=== PATIENT | male | born 1985 | race Caucasian/White ===

== ENCOUNTER 2019-12-29 14:46 | Emergency (ER) | payer SELFPAY ==
[2019-12-29 14:50] VITALS: BP 169/96; PULSE 117; RESP 16; TEMP 37.2; O2SAT 100
--- NOTE | 2019-12-29 15:01 | ED.SKABFB ---
HPI - Skin/Abscess/Foreign Bdy General Chief complaint: Skin/Abscess/Foreign Body Stated complaint: infection in R leg Time Seen by Provider: 12/29/19 15:01 Source: patient Mode of arrival: ambulatory Limitations: no limitations History of Present Illness HPI narrative: 34-year-old man comes in today complaining of pain swelling and redness of his right leg starting at the knee going down. States that he noticed about 5 days ago. 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 He states that his last tetanus shot was 5 years ago. He denies fever, nausea, vomiting, weakness or decreased range of motion in his knee. No history of diabetes or prior skin infections. complaint: rash Onset (ago): day(s) (5) Location: RLE Quality: burning and sharp Pain Consistency: constant Relieving factors: rest Exacerbating factors: palpation and movement Associated symptoms: denies other symptoms Treatments prior to arrival: none Related Data Allergies Allergy/AdvReac Type Severity Reaction Status Date / Time No Known Allergies Allergy Verified 12/29/19 15:05 Review of Systems Constitutional: Constitutional: Denies chills and Denies fever(s) Eyes: Eyes: Denies change in vision and Denies photophobia ENT: Denies dysphagia, Denies nasal congestion and Denies sore throat Cardiovascular: Cardiovascular: Denies chest pain and Denies radiating jaw, neck or arm pain Respiratory: Respiratory: Denies cough, Denies dyspnea and Denies wheezing Gastrointestinal: Gastrointestinal: Denies abdominal pain, Denies nausea and Denies vomiting Genitourinary: Genitourinary: Denies hematuria, Denies dysuria and Denies urinary frequency Musculoskeletal: Musculoskeletal: Denies back pain, Denies arthralgias and Denies joint swelling Integumentary/Breasts: Skin/Breast: Denies pruritus, Denies erythema and Denies rash Neurologic: Denies vertigo, Denies dizziness and Denies syncope Hematologic/Lymphatic: Hematologic/Lymphatic: Denies easy bleeding and Denies easy bruising Allergic/Immunologic: Allergic/Immunologic: Denies lip swelling and Denies wheezing PMFSH Social History Social History Smoking status: Current every day smoker Alcohol intake: never Substance use: never Living arrangements: with family Exam Const: General: alert Orientation/consciousness: patient oriented x3 Other: mild acute distress HENMT: Head: normal to inspection Mouth: Yes moist mucous membranes Throat: posterior oropharynx normal Eyes: Conjunctivae: conjunctivae normal Pupils: Equal, round and reactive pupils present EOM: EOMs intact bilaterally Resp: Effort & Inspection: normal respiratory effort and not labored Auscultation: clear to auscultation bilaterally, no rales, no rhonchi and no wheezes Cardio: Rate: regular rate Rhythm: regular rhythm Heart sounds: no murmurs Skin: General skin exam: no jaundice and no pallor Other: Erythema with induration and moderate swelling over the right anterior patella to the mid mccain. No lymphangitis is noted. Area is warm and mildly tender. There are some healing wounds including what appears to be a puncture wound on the right knee below the patella. No foreign bodies palpable. Neuro: General: patient oriented x3, moves all extremities, no focal motor deficits and CN's II-XI intact bilaterally Speech: normal speech Gait exam (Neuro): Normal gait present Extrem: General: normal to inspection and no clubbing, cyanosis or edema Psych: Appearance: grossly normal and well kempt Mental Status: mental status grossly normal Affect: normal affect MDM - Skin/Abscess/Foreign Bdy MDM Narrative Medical decision making narrative: Discussed possibly a foreign body given the abrasions and wounds on his right anterior knee. Patient states he does not recall any injury that might have caused it and declined an x-ray.
[2019-12-29] MEDS: CLINDAMYCIN HCL 150 MG CAP 300 MG PO (15:25)
== END 2019-12-29 15:39 | disposition home or self-care (01) ==
PROVIDERS: Emergency Provider Emergency Medicine
DX: L03.115 Cellulitis of right lower limb (principal)
CPT/HCPCS: 99283; A9270

== ENCOUNTER 2025-03-14 21:54 | Observation (INO) | payer MEDICAID, SELFPAY ==
[2025-03-14] VITALS (7 sets, daily range): BP systolic 130–165; BP diastolic 87–112; PULSE 75–97; RESP 9–17; TEMP 35.1; O2SAT 96–100
--- NOTE | ~2025-03-14 | XR_ITS ---
Examination: XR chest 1V portable Clinical History: Chest trauma Comparison: CT chest 1 day prior Technique: Portable AP Findings: Heart size normal. Right lower lobe airspace disease. No acute bony abnormality. IMPRESSION: 1. Persistent right lower lobe airspace disease. Reviewed, dictated and finalized at location R.
--- NOTE | ~2025-03-14 | CT_ITS ---
EXAMINATION: CT chest abdomen pelvis w con DATE: 03/14/2025 23:41 INDICATION: Chest injury. TECHNIQUE: Computed tomography (CT) of the chest, abdomen, and pelvis was performed with 100 mL Omnipaque 350 intravenous contrast. Automated exposure control and iterative reconstruction technique were employed. The dose-length product was 435.02 mGy-cm. COMPARISON: None FINDINGS: CHEST CT: There is mild scarring at the lung apices. There are nodules and airspace opacities in right middle lobe, consistent with pneumonia. No pleural effusion. The heart size is normal. No pericardial effusion. There is mild thoracic spondylosis. There is mild chronic anterior wedging of multiple thoracic ve rtebral bodies. There is no definitive rib fracture. ABDOMEN/PELVIS CT: There are cysts in the liver to 6 mm. The gallbladder is normal. There is a 9 mm cyst in the spleen. The pancreas, adrenal glands, and kidneys are normal. There are no dilated loops of bowel. The appendix is not visualized. There are no pathologically enlarged lymph nodes. There is no free intraperitoneal fluid. There is mild lumbar spondylosis. IMPRESSION: 1. Right middle lobe pneumonia. Reviewed, dictated and finalized at location E.
--- NOTE | 2025-03-14 22:12 | ED.GENADULT ---
HPI - General Adult General Chief complaint: Overdose Stated complaint: drug overdose Time Seen by Provider: 03/14/25 22:07 History of Present Illness HPI narrative: Alen is previously healthy 39M that was brought in by EMS after an apparent overdose. He was witnessed by law enforcement to be unresponsive. He reportedly coded but after 5 doses of narcan he regained consciousness. Then he reportedly told EMS he took fentanyl. He would not answer questions for me but just stated nobody wants him. Related Data Allergies Allergy/AdvReac Type Severity Reaction Status Date / Time No Known Allergies Allergy Verified 03/14/25 22:42 [facility] Social History Social History Smoking packs per day: 0.5 Smoking cigarettes per day: 10.0 Years smoked: 25 Smoking pack-years: 12.50 Smoking status: Current every day smoker Tobacco type: cigarettes Alcohol intake: former Substance use: current Substance use type: other Other substance usage details: fentanyl Lack of Transportation: No Lack of Food: Never True Current Housing: I Do Not Have Housing Concerned About Future Housing: Decline to Answer Difficulty Paying Gas/Electric Bills: Decline to Answer Difficulty Paying for Meds: Decline to Answer Currently Unemployed: Decline to Answer Education: Trade/Vocational Certificate Difficulty w/ Childcare or Family Care: No Living arrangements: with family Spiritual care concerns: No Exam Const: General: no acute distress and confusion Nutritional Appearance: thin HENMT: Head: normal to inspection Ears: external ears normal Mouth: Yes Normal oral and palatal mucosa present Eyes: Conjunctivae: conjunctivae normal Pupils: Equal, round and reactive pupils present Neck: Neck: normal visual inspection Resp: Effort & Inspection: normal respiratory effort Auscultation: clear to auscultation bilaterally Cardio: Rate: regular rate Rhythm: regular rhythm GI: Other: Normal inspection Back/Spine/Pelvis: Back: no CVA tenderness Skin: General skin exam: normal color Neuro: General: patient oriented x3 and moves all extremities Extrem: General: normal to inspection Psych: Mental Status: mental status grossly normal Course Course Emergency Course: Ordered labs EKG and CT given the compressions EKG showed NSR with a rate of 76, normal axis and no ST elevation Labs largely unremarkable. CT Chest/abd w/ contrast: questionable nondisplaced fracture of the right anterior 5th rib. No pleural effusion or pneumothorax Patchy ground glass/nodular infiltrates, may reflect infection/inflammation or aspiration CT abdomen and Pelvis: No acute intra-abdominal abnormality or solid organ injury. No free air or ascites. No acute osseous abnormality Around 2344 he went apneic and an additional 2m of Narcan were given as well as IV fluids. He continued to say things like nobody wants me here, I don't even matter and he stated he was depressed but would not answer if he wanted to harm himself. Levaquin given for the possible pneumonia and he was admitted to observation for monitoring. Vital Signs Vital signs: Vital Signs Temperature 95.1 F L 03/14/25 21:54 Pulse Rate 89 03/14/25 21:54 Respiratory Rate 12 03/14/25 21:54 Blood Pressure 134/91 H 03/14/25 21:54 Pulse Oximetry 100 03/14/25 21:54 Oxygen Delivery Room Air 03/14/25 21:54 Temperature 97.5 F L 03/15/25 07:35 Pulse Rate 76 03/15/25 08:30 Respiratory Rate 16 03/15/25 08:30 Blood Pressure 150/94 H 03/15/25 07:35 Pulse Oximetry 97 03/15/25 08:30 Oxygen Delivery Room Air 03/15/25 08:30 Medical Decision Making Vital Signs Vital Signs: Vital Signs Temperature 95.1 F L 03/14/25 21:54 Pulse Rate 89 03/14/25 21:54 Respiratory Rate 12 03/14/25 21:54 Blood Pressure 134/91 H 03/14/25 21:54 Pulse Oximetry 100 03/14/25 21:54 Oxygen Delivery Room Air 03/14/25 21:54 Temperature 97.5 F L 03/15/25 07:35 Pulse Rate 76 03/15/25 08:30 Respiratory Rate 16 03/15/25 08:30 Blood Pressure 150/94 H 03/15/25 07:35 Pulse Oximetry 97 03/15/25 08:30 Oxygen Delivery Room Air 03/15/25 08:30 Lab Data 03/15/25 10:14 03/15/25 10:14 Labs: Lab Results 03/14/25 03/14/25 03/14/25 Range/Units 22:26 22:27 22:41 WBC 8.0 (4.8-10.8) K/mm3 RBC 4.36 L (4.70-6.10) M/mm3 Hgb 13.7 L (14.0-18.0) g/dL Hct 41.9 (40.0-54.0) % MCV 96.1 (78.0-102.0) fL MCH 31.4 H (27.0-31.0) pg MCHC 32.7 (32-36) g/dL RDW 11.8 (11.6-14.4) % Plt Count 267 (150-420) K/mm3 MPV 9.9 (8.7-11.0) fl Immature Gran % (Auto) 0.7 H (0.0-0.0) % Neut % (Auto) 77.3 H (50.0-70.0) % Lymph % (Auto) 12.8 L (18.0-42.0) % [place] % (Auto) 5.7 (2.0-11.0) % Eos % (Auto) 2.6 (1.0-6.0) % Baso % (Auto) 0.9 (0.0-1.0) % Lymph # (Auto) 1.03 L (1.10-4.50) K/mm3 [place] # (Auto) 0.46 (0.10-0.90) K/mm3 Eos # (Auto) 0.21 (0.02-0.50) K/mm3 Baso # (Auto) 0.07 (0.00-0.10) K/mm3 Abs Immat Gran (auto) 0.06 H (0.00-0.00) K/mm3 Absolute Neuts (auto) 6.20 (1.70-7.20) K/mm3 Absolute Nucleated RBC 0.00 (0.00-0.00) K/mm3 Nucleated RBC % 0.0 (0-0.0) % Sodium 141 (137-145) mmol/L Potassium 4.4 (3.4-5.0) mmol/L Chloride 102 (98-107) mmol/L Carbon Dioxide 28 (22-30) mmol/L Anion Gap 11 (4-12) mmol/L BUN 12 (9-20) mg/dL Creatinine 1.41 H (0.7-1.3) mg/dL Estim Creat Clear Calc 52 ml/min Estimated GFR 55 L (59 - ) Glucose 195 H (65-110) mg/dL Calculated Osmolality 296 H (285-295) mOsm/kg Calcium 9.5 (8.4-10.2) mg/dL Magnesium 2.3 (1.6-2.3) mg/dL Total Bilirubin 0.9 (0.2-1.3) mg/dL AST 29 (17-59) U/L ALT 21 (6-50) U/L Alkaline Phosphatase 89 (38-126) U/L Troponin I < 0.012 (0.000-0.034) ng/mL NT-Pro-B Natriuret Pep 108 H (19.9-100) pg/mL Total Protein 8.3 H (6.3-8.2) g/dL Albumin 4.6 (3.5-5.1) g/dL Salicylates < 1.0 L (2-20) mg/dL Acetaminophen < 10 L (10-30) ug/mL Ethyl Alcohol < 10 (<10) mg/dL Critical Care Time Critical Care Time Critical Care Time: Yes Total Critical Care Time: 10 Discharge Plan Discharge Clinical Impression: Drug overdose Patient Disposition: Acute Care Hospital [facility] Condition: Stable
--- NOTE | 2025-03-14 22:14 | ECG_ITS ---
Test Date: 2025-03-14 22:31:02 Measurements Intervals [place] Rate: 76 P: 78 VT: 160 QRS: 78 QRSD: 94 T: 84 QT: 437 QTc: 492 Interpretive Statements SINUS RHYTHM NONSPECIFIC ST ELEVATION IN ANT/INF LEADS PROLONGED QT INTERVAL ABNORMAL ECG No previous ECG available for comparison Electronically Signed On 03-15-2025 06:16:47 CDT by Vasquez Garcia D.O.
[2025-03-14 22:46] LABS: Hematocrit 41.9 % (40.0-54.0); Hemoglobin 13.7 g/dL (14.0-18.0); Immature Granulocyte Percent A 0.7 % (0.0-0.0); Lymphocytes Absolute Auto 1.03 K/mm3 (1.10-4.50); Mean Corpuscular HGB Conc 32.7 g/dL (32-36); Mean Corpuscular Hemoglobin 31.4 pg (27.0-31.0); Mean Corpuscular Volume 96.1 fL (78.0-102.0); Nucleated Red Blood Cells Absolute Auto 0.00 K/mm3 (0.00-0.00); Nucleated Red Blood Cells Perc 0.0 % (0-0.0); Platelet Count Result 267 K/mm3 (150-420); Red Blood Count 4.36 M/mm3 (4.70-6.10); White Blood Count 8.0 K/mm3 (4.8-10.8)
[2025-03-14 23:05] LABS: Alanine Aminotransferase 21 U/L (6-50); Albumin Level 4.6 g/dL (3.5-5.1); Alkaline Phosphatase 89 U/L (38-126); Anion Gap 11 mmol/L (4-12); Aspartate Amino Transferase 29 U/L (17-59); Bilirubin,Total 0.9 mg/dL (0.2-1.3); Blood Urea Nitrogen 12 mg/dL (9-20); Calcium 9.5 mg/dL (8.4-10.2); Carbon Dioxide 28 mmol/L (22-30); Chloride 102 mmol/L (98-107); Estimated CRCL calculation 52 ml/min; Estimated Glomerular Filt Rate 55; Glucose 195 mg/dL (65-110); Magnesium 2.3 mg/dL (1.6-2.3); Osmolality Calculated 296 mOsm/kg (285-295); Potassium 4.4 mmol/L (3.4-5.0); Sodium 141 mmol/L (137-145); Total Protein 8.3 g/dL (6.3-8.2)
[2025-03-14 23:06] LABS: Acetaminophen < 10 ug/mL (10-30); Salicylate < 1.0 mg/dL (2-20)
[2025-03-14 23:17] LABS: NT Pro B Type Natriuretic Pept 108 pg/mL (19.9-100); Troponin I < 0.012 ng/mL (0.000-0.034)
[2025-03-14] MEDS: NALOXONE HCL INJ 2 MG/2 ML AMP IV PUSH (23:42)
[2025-03-14] MEDS: SODIUM CHLORIDE 0.9% IV 1,000 ML 999 ML IV CONT (23:42)
[2025-03-15] VITALS (10 sets, daily range): BP systolic 131–156; BP diastolic 94–116; PULSE 73–103; RESP 8–22; TEMP 36.4–36.9; O2SAT 97–100; BMI 17.4
[2025-03-15] MEDS: levoFLOXacin 750 MG/D5W 150 ML 750 MG/150 ML BAG 100 MG IVPB (00:57)
--- NOTE | 2025-03-15 01:02 | PC.NURSE ---
ERP aware of pt's vitals. No new orders.
--- NOTE | 2025-03-15 01:14 | PC.NURSE ---
Spoke with Kadie, ED RN, report given, patient to be admitted to 203, awaiting patient arrival.
[2025-03-15 01:54] LABS: Add Urine Microscopic? NO; Appearance Urine Clear (Clear); Glucose Urine UA Negative (Negative); Leukocyte Esterase Ur Negative LEU/UL (Negative); Nitrate Urine Negative (Negative); Specific Grav Ur 1.010 (1.010-1.020)
[2025-03-15 02:04] LABS: Cannabinoid Screen Urine Negative (Negative)
--- NOTE | 2025-03-15 02:04 | ADMGEN ---
This patient, Alen Balderas, was admitted to 2nd Floor Room 203-1. Patient/family oriented to hospital policies and general routines including ID bracelet, bed and alarms, visiting hours, pain management, procedures, bathroom and other care routines, personal items, smoking policy, room service/diet, and visiting hours. Information on how to activate the Rapid Response Team has been discussed. Patient/Family are encouraged to report perceived risks to care and to ask questions if they do not understand what they are told or what they should do.
--- NOTE | 2025-03-15 09:59 | ECG_ITS ---
Test Date: 2025-03-15 10:32:30 Measurements Intervals [place] Rate: 66 P: 89 MO: 140 QRS: 83 QRSD: 89 T: 90 QT: 426 QTc: 449 Interpretive Statements SINUS RHYTHM VOLTAGE CRITERIA FOR LVH BORDERLINE ST-T WAVE ABNORMALITY- HIGH LATERAL LEADS BASELINE ARTIFACT- I, II, III, AVR, AVL, AVF, V1-V6 BORDERLINE ECG Compared to ECG 03/14/2025 22:31:02 NO SIGNIFICANT CHANGE Electronically Signed On 03-15-2025 11:35:56 CDT by Vasquez Garcia D.O.
[2025-03-15 10:23] LABS: Hematocrit 40.5 % (40.0-54.0); Hemoglobin 13.6 g/dL (14.0-18.0); Mean Corpuscular HGB Conc 33.6 g/dL (32-36); Mean Corpuscular Hemoglobin 31.8 pg (27.0-31.0); Mean Corpuscular Volume 94.6 fL (78.0-102.0); Platelet Count Result 306 K/mm3 (150-420); Red Blood Count 4.28 M/mm3 (4.70-6.10); White Blood Count 10.6 K/mm3 (4.8-10.8)
[2025-03-15 10:40] LABS: Alanine Aminotransferase 20 U/L (6-50); Albumin Level 4.4 g/dL (3.5-5.1); Alkaline Phosphatase 91 U/L (38-126); Anion Gap 8 mmol/L (4-12); Aspartate Amino Transferase 28 U/L (17-59); Bilirubin,Total 1.0 mg/dL (0.2-1.3); Blood Urea Nitrogen 12 mg/dL (9-20); Calcium 9.3 mg/dL (8.4-10.2); Carbon Dioxide 27 mmol/L (22-30); Chloride 102 mmol/L (98-107); Estimated CRCL calculation 59 ml/min; Estimated Glomerular Filt Rate > 60; Glucose 90 mg/dL (65-110); Magnesium 2.1 mg/dL (1.6-2.3); Osmolality Calculated 283 mOsm/kg (285-295); Potassium 4.4 mmol/L (3.4-5.0); Sodium 137 mmol/L (137-145); Total Protein 7.7 g/dL (6.3-8.2)
--- NOTE | 2025-03-15 11:00 | P.SS_ITS ---
Same Day Admit/Disch: HPI History of Present Illness Chief complaint: Unresponsive/Overdose Narrative: Alen Balderas is a 39 year old male Who was brought into the emergency department after found unresponsive by law enforcement which time EMS was called. per medical chart around to the emergency department patient was administered Narcan x 5 after his found to respiratory failure and reported coded at which time they performed CPR but patient became responsive after administration of Narcan. initially in the emergency department patient was alert and reporting no once me to the ER physician. patient with no past medical history could be found medical chart. While patient was still emergency department around 08/20/2044 it appears he had an episode of apneic and was given an additional 2 mg of Narcan IV fluid boluses. patient at this time became responsive and was answering questions. patient was admitted to the medical unit for observation overnight. In the ED: labs were fairly unremarkable except for an GIGI. Drug screen was positive opiates, amphetamines. Reports overdose on fentanyl. Received a total of 7 doses of narcan and IV fluids. CT chest/ABD showed RT middle lobe PNA at which time patient was given IV Levaquin. [facility] Social History Social History Smoking packs per day: 0.5 Smoking cigarettes per day: 10.0 Years smoked: 25 Smoking pack-years: 12.50 Smoking status: Current every day smoker Tobacco type: cigarettes Alcohol intake: former Substance use: current Substance use type: other Other substance usage details: fentanyl Lack of Transportation: No Lack of Food: Never True Current Housing: I Do Not Have Housing Concerned About Future Housing: Decline to Answer Difficulty Paying Gas/Electric Bills: Decline to Answer Difficulty Paying for Meds: Decline to Answer Currently Unemployed: Decline to Answer Education: Trade/Vocational Certificate Difficulty w/ Childcare or Family Care: No Living arrangements: with family Spiritual care concerns: No Same Day Admit/Disch: Med Pre-admit Medications Home Medications ?Medication ?Instructions ?Recorded ?Confirmed ?Type levofloxacin 750 mg tablet 750 mg PO DAILY #4 tabs Rx Review of Systems Review of Systems All systems reviewed & are unremarkable except as noted in HPI and below Exam Const: General: comfortable and no acute distress HENMT: Mouth: Yes moist mucous membranes Eyes: General: appearance normal, both eyes and all related structures Neck: Neck: supple and no JVD Resp: Effort & Inspection: normal respiratory effort Auscultation: clear to auscultation bilaterally Cardio: Rate: regular rate Rhythm: regular rhythm GI: GI Palp: Yes Soft to palpation Auscultation: normal bowel sounds Skin: General skin exam: normal color Wounds: no wounds Neuro: General: gait normal Speech: normal speech Motor exam (neuro): 5/5 motor strength present throughout Sensory Exam: normal sensation Extrem: General: normal to inspection Psych: Appearance: disheveled Mental Status: mental status grossly normal Speech and movement: Normal speech and movement present and Clear speech present Affect: Sad affect present and Other affect and mood findings present (tearful) Attitude: cooperative Thought content: Yes Depressive thoughts present Insight: Limited insight present (Psych) Judgement: Poor judgement present (Psych) DS: Data Data Completed and Pending Labs on day of discharge: Labs from last 24 hours 03/15/25 03/15/25 03/14/25 10:14 01:35 22:41 WBC 10.6 8.0 RBC 4.28 L 4.36 L Hgb 13.6 L 13.7 L Hct 40.5 41.9 MCV 94.6 96.1 MCH 31.8 H 31.4 H MCHC 33.6 32.7 RDW 12.0 11.8 Plt Count 306 267 MPV 9.9 9.9 Immature Gran % (Auto) 0.7 H Neut % (Auto) 77.3 H Lymph % (Auto) 12.8 L [place] % (Auto) 5.7 Eos % (Auto) 2.6 Baso % (Auto) 0.9 Lymph # (Auto) 1.03 L [place] # (Auto) 0.46 Eos # (Auto) 0.21 Baso # (Auto) 0.07 Abs Immat Gran (auto) 0.06 H Absolute Neuts (auto) 6.20 Absolute Nucleated RBC 0.00 Nucleated RBC % 0.0 Sodium 137 141 Potassium 4.4 4.4 Chloride 102 102 Carbon Dioxide 27 28 Anion Gap 8 11 BUN 12 12 Creatinine 1.11 1.41 H Estim Creat Clear Calc 59 52 Estimated GFR > 60 55 L Glucose 90 195 H Calculated Osmolality 283 L 296 H Calcium 9.3 9.5 Magnesium 2.1 2.3 Total Bilirubin 1.0 0.9 AST 28 29 ALT 20 21 Alkaline Phosphatase 91 89 Troponin I < 0.012 NT-Pro-B Natriuret Pep 108 H Total Protein 7.7 8.3 H Albumin 4.4 4.6 Urine Color Light yellow Urine Appearance Clear Urine pH 6.5 Ur Specific [place] 1.010 Urine Protein Negative Urine Glucose (UA) Negative Urine Ketones Trace H Ur Blood (Man) Negative Urine Nitrate Negative Urine Bilirubin Negative Urine Urobilinogen 0.2 Leukocyte Esterase Rfl Negative Salicylates Urine Opiates Screen Positive A Urine Methadone Screen Negative Acetaminophen Ur Barbiturates Screen Negative Ur Phencyclidine Scrn Negative Ur Amphetamine Screen Positive A U Benzodiazepines Scrn Negative Urine Cocaine Screen Negative U Cannabinoids Screen Negative Ethyl Alcohol 03/14/25 03/14/25 22:27 22:26 WBC RBC Hgb Hct MCV MCH MCHC RDW Plt Count MPV Immature Gran % (Auto) Neut % (Auto) Lymph % (Auto) [place] % (Auto) Eos % (Auto) Baso % (Auto) Lymph # (Auto) [place] # (Auto) Eos # (Auto) Baso # (Auto) Abs Immat Gran (auto) Absolute Neuts (auto) Absolute Nucleated RBC Nucleated RBC % Sodium Potassium Chloride Carbon Dioxide Anion Gap BUN Creatinine Estim Creat Clear Calc Estimated GFR Glucose Calculated Osmolality Calcium Magnesium Total Bilirubin AST ALT Alkaline Phosphatase Troponin I NT-Pro-B Natriuret Pep Total Protein Albumin Urine Color Urine Appearance Urine pH Ur Specific [place] Urine Protein Urine Glucose (UA) Urine Ketones Ur Blood (Man) Urine Nitrate Urine Bilirubin Urine Urobilinogen Leukocyte Esterase Rfl Salicylates < 1.0 L Urine Opiates Screen Urine Methadone Screen Acetaminophen < 10 L Ur Barbiturates Screen Ur Phencyclidine Scrn Ur Amphetamine Screen U Benzodiazepines Scrn Urine Cocaine Screen U Cannabinoids Screen Ethyl Alcohol < 10 Imaging Radiologist's impression: EXAMINATION: CT chest abdomen pelvis w con DATE: 03/14/2025 23:41 INDICATION: Chest injury. TECHNIQUE: Computed tomography (CT) of the chest, abdomen, and pelvis was performed with 100 mL Omnipaque 350 intravenous contrast. Automated exposure control and iterative reconstruction technique were employed. The dose-length product was 435.02 mGy-cm. COMPARISON: None FINDINGS: CHEST CT: There is mild scarring at the lung apices. There are nodules and airspace opacities in right middle lobe, consistent with pneumonia. No pleural effusion. The heart size is normal. No pericardial effusion. There is mild thoracic spondylosis. There is mild chronic anterior wedging of multiple thoracic vertebral bodies. There is no definitive rib fracture. ABDOMEN/PELVIS CT: There are cysts in the liver to 6 mm. The gallbladder is normal. There is a 9 mm cyst in the spleen. The pancreas, adrenal glands, and kidneys are normal. There are no dilated loops of bowel. The appendix is not visualized. There are no pathologically enlarged lymph nodes. There is no free intraperitoneal fluid. There is mild lumbar spondylosis. IMPRESSION: 1. Right middle lobe pneumonia. DS: Summary Hospital Course Reason for hospitalization: Drug overdose Hospital Course: Alen Balderas is a 39 year old male Who was brought into the emergency department after found unresponsive by law enforcement which time EMS was called. per medical chart around to the emergency department patient was administered Narcan x 5 after his found to respiratory failure and reported coded at which time they performed CPR but patient became responsive after administration of Narcan. initially in the emergency department patient was alert and reporting no once me to the ER physician. patient with no past medical history could be found medical chart. While patient was still emergency department around 08/20/2044 it appears he had an episode of apneic and was given an additional 2 mg of Narcan IV fluid boluses. patient at this time became responsive and was answering questions. patient was admitted to the medical unit for observation overnight. In the ED: labs were fairly unremarkable except for an GIGI. Drug screen was positive opiates, amphetamines. Reports overdose on fentanyl. Received a total of 7 doses of narcan and IV fluids. CT chest/ABD showed RT middle lobe PNA at which time patient was given IV Levaquin. Hospital Course: patient was admitted overnight for observation follow-up assessment patient alert oriented x4 in no acute distress labs unremarkable and vital stable. Spoke with patient regarding depressive thoughts he did report he was not suicidal and had no plans but has been having a lot of social problems. patient stated he does not usually use fentanyl but did report the use of methamphetamines. patient was tearful assessment I did offer patient has some resources outpatient for counseling at this time though he has refused. I encouraged immediate drug cessation. Patient did report mild shortness a breath was informed imaging showed right middle lobe pneumonia which time he was discharged on oral antibiotics. patient has acute kidney injury improved with IV fluids he was tolerating all oral intake with no respiratory distress 98 on room air. patient denied any chest pain, abdominal pain, nausea, vomiting, fever chills. Patient was discharged home Status at Discharge Functional status at discharge: independent ambulation Overall status at discharge: patient is back to baseline Time Spent with Patient Time attestation: Total time spent providing and/or coordinating discharge services: Time spent: Greater than 30 minutes DS: Admitting Diagnosis Discharge Date 03/15/2025 Admitting Diagnosis Drug overdose DS: Discharge Diagnosis Discharge Diagnosis (1) Drug overdose: Code(s): T50.901A - Poisoning by unspecified drugs, medicaments and biological substance s, accidental (unintentional), initial encounter Status: Acute (2) GIGI (acute kidney injury): Code(s): N17.9 - Acute kidney failure, unspecified Status: Acute Discharge Plan Discharge Attending physician on discharge: Adrien Fernandez Consulting providers: Beulah Acosta Discharging Clinician: Beulah Acosta Anticipated Discharge Date/Time: 03/15/25 11:14 Patient Disposition: Home Activity: may shower, unlimited and as tolerated Diet: regular Discharge Instructions: 1). Pneumonia * Oral Levaquin has been prescribed for treatment of ammonia please take as indicated incomplete even if feeling better How can you care for yourself at home? ? Keep track of any new symptoms or changes in your symptoms. ? Rest until you feel better. ? Be safe with medicines. Take your medicines exactly as prescribed. Call your doctor if you think you are having a problem with your medicine. ? Do not drive after taking a prescription pain medicine. ? Ensure to follow-up with primary care physician as indicated and provide updated medication list provided to you at discharge. When should you call for help? Call 911 anytime you think you may need emergency care. For example, call if: ? You passed out (lost consciousness). Call your doctor now or seek immediate medical care if: ? You have new symptoms like fever, difficulty breathing, Chest pain, vomiting, or rash. ? You have new or different pain. ? You are confused and are having trouble thinking clearly. ? Your symptoms are getting worse. Watch closely for changes in your health, and be sure to contact your doctor if: ? You do not get better as expected. Patient Instructions: Antibiotic Form Patient Language: Albanian Stand Alone Forms: General Discharge Information Follow-up/Referrals: PHYSICIAN,[facility]NER [Primary Care Provider, Internal Medicine] - 2 weeks Discharge Medications: New levofloxacin 750 mg tablet 750 mg PO DAILY Qty: 4 0RF Date of admission: 03/15/25 01:01 Primary Care Provider: PHYSICIAN,[facility]NER Admitting Provider: Adrien Fernandez Attending physician on admission: Adrien Fernandez Condition: Stable Quality If No VTE Prophylaxis Answer both mechanical and pharmacologic: Reason no mechanical VTE proph: low risk/not indicated Reason no pharmacologic proph: low risk/not indicated -Patient's previous records reviewed on admission -ER notes reviewed in detail on admission -discussed all findings and current treatment plan with patient/Family/POA -Consultations reviewed for recommendations -Patient's disposition for safe discharge discussed with caser shoe parts -radiology imaging, EKG and test results I have personally reviewed and interpreted unless otherwise specified Dictation performed by [employer] direct speech recognition software, therefore chinese teacher variants and typographical errors may occur. Hospitalist MIPS Advance Care Plan I have confirmed that the patient's Advanced Care Plan is present, code status is documented, or surrogate decision maker is listed in patient medical record.: Yes Medication Reconciliation I have utilized all available resources to obtain, update and review the patients current medications (includes all prescriptions, OTC, herbals, cannabis, and nutritional supplements).: Yes The patient is not eligible for med reconciliation; the patient is in a emergent medical situation where delaying treatment would jeopardize the patients health.: No Heart Failure (Exclusion) Patient has history of Heart Transplant or Left Ventricular Assistive Device?: No IF YES, STOP HERE Heart Failure (Qualifier) Patient has current or prior documentation of LVEF less than or equal to 40%, or mod/servere depressed LVSF?: No IF NO, STOP HERE
--- NOTE | 2025-03-15 11:40 | PC.NURSE ---
Patient discharging. IV site removed, tip intact. Dressing applied to site. Patient able to dress self. All discharge instructions and education reviewed with patient. Patient states understanding and denies any questions. Patient left floor ambulatory accompanied by this nurse to the front door. Patient denies any need at time of discharge.
== END 2025-03-15 11:40 | disposition home or self-care (01) ==
LOC: CHSED 03-15 01:03 → CHS2ND 03-15 08:09
PROVIDERS: Nurse Practitioner Family; Admitting Provider Internal Medicine; Emergency Provider Family Medicine; Referring Provider Internal Medicine; Visit Provider Internal Medicine
DX: T40.411A Poisoning by fentanyl or fentanyl analogs, accidental (unintentional), initial encounter (principal); J96.90 Respiratory failure, unspecified, unspecified whether with hypoxia or hypercapnia; N17.9 Acute kidney failure, unspecified; J18.9 Pneumonia, unspecified organism; F17.210 Nicotine dependence, cigarettes, uncomplicated; F15.90 Other stimulant use, unspecified, uncomplicated
CPT/HCPCS: 36415; 71045; 71260; 74177; 80053; 80143; 80179; 80307; 81003; 82077; 83735; 83880; 84484; 85025; 85027; 93005; 96361; 96365; 96366; 96374; 99285; G0378; G0379; J1956; J2312; J7030; Q9967